=== PATIENT | female | born 1960 | race African-American/Black ===

== ENCOUNTER 2024-12-30 09:35 | Emergency (ER) | payer OTHER ==
[2024-12-30 10:21] VITALS: BMI 32.3
[2024-12-30 10:56] LABS: RDW 14.9 % (12.4-16.4)
[2024-12-30 10:57] LABS: HEMATOCRIT 24.3 % (34.1-44.9); HEMOGLOBIN 7.6 g/dL (11.2-15.7); MCHC 31.3 g/dl (32.2-35.5); MEAN CELL VOLUME 95.3 fl (79.4-94.8); MEAN PLT VOLUME 11.7 fl (9.4-12.3); PLATELET COUNT 209 x10^3/uL (182-369)
[2024-12-30 11:03] LABS: INR 1.24 (0.83-1.09); PROTHROMBIN TIME (PATIENT) 13.5 SEC (9.7-13.0)
[2024-12-30 11:05] LABS: ACTIVATED PTT 33.5 SECONDS (25.2-36.5)
[2024-12-30 11:31] LABS: POTASSIUM 4.8 mmol/L (3.5-5.1)
[2024-12-30 11:34] LABS: CALCIUM 9.6 mg/dL (8.5-10.1)
[2024-12-30 11:35] LABS: ALBUMIN 2.9 g/dl (3.4-5.0); BLOOD UREA NITROGEN 28.9 mg/dL (7-18)
[2024-12-30 11:38] LABS: CREATININE 3.1 mg/dL (0.55-1.3)
[2024-12-30 11:39] LABS: BILIRUBIN,TOTAL 0.3 mg/dL (0.2-1); TOT PROT 7.2 g/dl (6.4-8.2)
[2024-12-30 13:24] VITALS: RESP 18
[2024-12-30 16:34] VITALS: BP 116/68; PULSE 63; TEMP 99
== END 2024-12-30 16:36 ==
LOC: JER 09:35
DX: N18.9 Chronic kidney disease, unspecified (principal); D63.1 Anemia in chronic kidney disease; R23.1 Pallor; R94.31 Abnormal electrocardiogram [ECG] [EKG]
CPT/HCPCS: 36415; 36430; 80053; 82272; 82962; 83880; 85025; 85610; 85730; 86850; 86900; 86901; 86922; 93005; 93010; 99285-25; P9054